=== PATIENT | female | born 1980 | race Caucasian/White ===

== ENCOUNTER 2020-11-27 23:15 | Emergency (ER) | payer OTHER ==
[~2020-11-27 23:15] MED LIST: AUGMENTIN 875-1 EACH PO; CYCLOBENZAPRINE10 MG PO; IBUPROFEN800 MG PO; MEDROL DOSEPAK 24 MG PO
[2020-11-28 02:52] LABS: HEMOGLOBIN 12.6 gm/dl (12.3-15.3); RED BLOOD COUNT 4.26 M/UL (4.00-5.10); WHITE BLOOD COUNT 5.9 K/UL (4.5-11.0)
[2020-11-28 03:35] LABS: BUN/CREATININE RATIO 12 (0-10)
[2020-11-28] MEDS ORDERED: IBUPROFEN600 MG PO (06:27)
[2020-11-30 08:10] LABS: HBSAG SCREEN Negative (Negative); HEP A AB, IGM Negative (Negative); HEP B CORE AB, IGM Negative (Negative); HEP C VIRUS AB >11.0 (0.0-0.9)
== END 2020-11-28 06:50 | disposition home or self-care (01) ==
LOC: ER1 23:15
PROVIDERS: Family Medicine
DX: K75.9 Inflammatory liver disease, unspecified (principal); N83.202 Unspecified ovarian cyst, left side; Z98.890 Other specified postprocedural states
CPT/HCPCS: 80053; 80074; 82150; 83690; 85025; 96374; 96375; 99284; J1885; J2405; Q9967

== ENCOUNTER 2021-04-15 07:51 | Observation (INO) | payer OTHER ==
[~2021-04-15] VITALS: Ht 160 cm; Wt 68.0 kg
[~2021-04-15 07:51] MED LIST changes: +IBUPROFEN600 MG PO
[2021-04-15 08:19] LABS: HEMOGLOBIN 12.8 gm/dl (12.3-15.3); RED BLOOD COUNT 4.39 M/UL (4.00-5.10); WHITE BLOOD COUNT 10.5 K/UL (4.5-11.0)
[2021-04-15 08:43] LABS: BUN/CREATININE RATIO 16 (0-10)
[2021-04-15] MEDS ORDERED: KEFLEX CAP 250250 MG PO (12:11)
--- NOTE | 2021-04-15 17:24 | NUR ---
1725: NO CHART CHECK PERFORMED PATIENT GONE TO THE OR.
[2021-04-15] MEDS ORDERED: ROXICODONE TAB 55 MG GT (19:45)
--- NOTE | 2021-04-15 20:51 | NUR ---
PT NOT ABLE TO FILL PRESCRIPTIONS FOR MEDS [facility] D/T PHARMACY CLOSED. DR. PUENTE ALREADY IN ANOTHER SURGERY SO HE IS UNABLE TO SEND THEM TO [facility]. PT AND SIGNIF OTHER BOTH AGREED TO BE DISCHARGED HOME KNOWING THAT MEDS CANNOT BE FILLED AT PHARMACY UNTIL IN THE MORNING. DUTCH KHAN RN IS A WITNESS TO EVENT AND AGREEANCE BY PT. PT EDUCATED SHE CAN TAKE TYLENOL AND IBUPROFEN OTC AT HOME PRN. SEE PROVIDER NOTES FOR MORE INFO
== END 2021-04-15 21:47 | disposition home or self-care (01) ==
LOC: ER1 07:51 → CDU 11:22 → M/S 15:20
PROVIDERS: Emergency Medicine; ADMIT Surgery Trauma Surgery
DX: K35.80 Unspecified acute appendicitis (principal); Z20.822 Contact with and (suspected) exposure to COVID-19; Z79.2 Long term (current) use of antibiotics
CPT/HCPCS: 80053; 82550; 82553; 83690; 83874; 84484; 84703; 85025; 85379; 87040; 96374; 96375; 99285; G0378; J0694; J1100; J1644; J2001; J2270; J2405; J2543; J2704; J2710; J3010; J7030; J7120; Q9967; U0002

== ENCOUNTER 2022-05-20 16:37 | Emergency (ER) | payer OTHER ==
[~2022-05-20 16:37] MED LIST changes: +KEFLEX CAP 250250 MG PO; +ROXICODONE TAB 55 MG GT
[2022-05-20] MEDS ORDERED: CEPHALEXIN500 MG PO (17:40)
[2022-05-20] MEDS ORDERED: BACTROBAN OINT22 GM EXT (17:48)
== END 2022-05-20 18:29 | disposition home or self-care (01) ==
LOC: ER1 16:37
DX: S60.452A Superficial foreign body of right middle finger, initial encounter (principal); W45.8XXA Other foreign body or object entering through skin, initial encounter
CPT/HCPCS: 73140; 99283

== ENCOUNTER → 2022-08-16 | Outpatient (CLI) | payer OTHER ==
[~2022-08-16] MED LIST changes: +BACTROBAN OINT22 GM EXT; +CEPHALEXIN500 MG PO
== END ==
LOC: EXRD 10:00
DX: R10.11 Right upper quadrant pain (principal)
CPT/HCPCS: 76705